=== PATIENT | male | born 1995 | race Two or more races ===

== ENCOUNTER 2024-10-26 07:59 | Emergency (ER) | payer SELFPAY ==
[2024-10-26] MEDS: oxyCODONE 5 MG Tab PO ONE (08:12)
[2024-10-26] MEDS: Propofol 200 MG/20 ML SDV IVPUSH ONE (08:33)
[2024-10-26] MEDS: Sodium Chloride 0.9% 1,000 ML IV ONE (08:33)
== END 2024-10-26 09:27 | disposition home or self-care (01) ==
LOC: MW.ED 07:59
DX: S43.004A Unspecified dislocation of right shoulder joint, initial encounter (principal); Z75.8 Other problems related to medical facilities and other health care; X50.0XXA Overexertion from strenuous movement or load, initial encounter; Y93.89 Activity, other specified
CPT/HCPCS: 23650; 73030; 99152; 99283; A9270; J2704; J7030; 99284